=== PATIENT | male | born 2000 | race Caucasian/White ===

== ENCOUNTER 2022-07-12 22:21 | Emergency (ER) | payer SELFPAY ==
[~2022-07-12] VITALS: Ht 193 cm; Wt 88.5 kg
[~2022-07-12 22:21] MED LIST: ATOM40CA3 PO; ZPR20C PO
[2022-07-13] MEDS ORDERED: TETANUS,DIPTH,PERTUSS P/F (BOOSTRIX) 0.5 ML VIAL IM ONE
--- NOTE | 2022-07-13 00:27 | ED General ---
General Chief Complaint: Cough/Cold/Flu Symptoms Stated Complaint: COUGH,CHEST CONGESTION,"LUNGS/HEART BURNING" Nursing Triage Note: PATIENT STATES COUGHING UP MUCUS WHITE AND BROWN. STATES PAINFUL IN CHEST WHEN COUGHING. WEAKNESS. Source of Information: Patient, Family Exam Limitations: No Limitations History of Present Illness Date Seen by Provider: Jul 12, 2022 Time Seen by Provider: 23:15 Initial Comments This 21-year-old young man presents to the emergency room with productive cough and chest pain with his cough. He has a generalized weakness. Throat is sore. He is afebrile. He has taken Tylenol and NyQuil but is still struggling with the symptoms. Cough has been present for 2 to 3 days. He also complains of a laceration on his left ring finger over the proximal PIP joint. This was a self inflicted accidental wound that occurred while he was skinning a deer this morning. Allergies and Home Medications Allergies Coded Allergies: Penicillins (Unverified Allergy, Mild, 07/12/22) amoxicillin (Unverified Allergy, Mild, 07/12/22) Patient Home Medication List Home Medication List Reviewed: Yes Atomoxetine Hcl (Strattera) 40 Mg Capsule, 40 MG PO DAILY, (Reported) Entered as Reported by: YONG NAVARRO on 11/11/101607 Ziprasidone (Geodon 20 Mg Cap) 20 Mg Cap, 20 MG PO EVENING, (Reported) Entered as Reported by: YONG NAVARRO on 11/11/101607 Review of Systems Review of Systems Constitutional: no symptoms reported EENTM: see HPI Respiratory: see HPI Cardiovascular: no symptoms reported Gastrointestinal: no symptoms reported Genitourinary: no symptoms reported Musculoskeletal: see HPI Skin: no symptoms reported Psychiatric/Neurological: No Symptoms Reported Hematologic/Lymphatic: No Symptoms Reported Past [id number] Hx Patient Social History Tobacco Use?: Yes Tobacco type used: Cigarettes Smoking Status: Current Everyday Smoker Immunizations Up To Date Influenza Vaccine Up-to-Date: No; Not Current Past Medical History Surgeries: No Respiratory: No Cardiac: No Neurological: No Genitourinary: No Gastrointestinal: No Musculoskeletal: No Endocrine: No Cancer: No Psychosocial: No Physical Exam Vital Signs Capillary Refill : Height, Weight, BMI Height: '" Weight: lbs. oz. kg; 23.00 BMI Method: General Appearance: No Apparent Distress, WD/WN HEENT: PERRL/EOMI, TMs Normal, Normal ENT Inspection, Pharynx Normal Neck: Normal Inspection Respiratory: Lungs Clear, Normal Breath Sounds, No Accessory Muscle Use Cardiovascular: Regular Rate, Rhythm, No Edema, No Murmur Gastrointestinal: Non Tender, Soft Extremity: No Pedal Edema, Other (Laceration on dorsum on left ring finger over the PIP joint. No bleeding or inflammation. Flexion and extention intact. No aparent tendon injury. ) Neurologic/Psychiatric: Alert, Oriented x3, No Motor/Sensory Deficits, Normal Mood/Affect Skin: Normal Color, Warm/Dry, Other (laceration less than 1cm on the dorsum of the left ring finger. No bleeding or inflammation) Progress/Results/Core Measures Suspected Sepsis SIRS Temperature: Pulse: 66 Respiratory Rate: Blood Pressure 129 /75 Mean: 93 Results/Orders Lab Results Laboratory Tests Test 07/12/22 23:30 Range/Units Influenza Type A (RT-PCR) Detected H Not Detecte Influenza Type B (RT-PCR) Not Detected Not Detecte SARS-CoV-2 RNA (RT-PCR) Not Detected Not Detecte My Orders Orders - IAN OTTO MD Covid 19 Inhouse Test (07/12/22 23:15) Influenza A And B By Pcr (07/12/22 23:15) Dipht,Pertuss(Acell),Tet Adult (Boostrix (07/13/22 00:00) Vaccine Administration Single (07/12/22 ) Medications Given in ED Vital Signs/I&O Capillary Refill : Blood Pressure Mean: 93 Progress Note : Progress Note Patient tested positive for influenza A. He is too far into course of illness for Tamiflu. Laceration could not be reasonably repaired due to location and greater than 12 hours since injury. Wound was washed with chlorhexidine and tetanus booster was administered. See discharge instructions for further discussion. Departure Impression Primary Impression: Influenza A Additional Impression: Laceration of finger Qualified Codes: S61.215A - Laceration without foreign body of left ring finger without damage to nail, initial encounter Disposition: 01 HOME, SELF-CARE Condition: Stable Departure-Patient Inst. Decision time for Depature: 00:25 Referrals: NO,LOCAL PHYSICIAN (PCP/Family) Primary Care Physician Patient Instructions: Flu Add. Discharge Instructions: Drink plenty of clear liquids to stay well-hydrated. You may take ibuprofen up to 600 mg every 6 hours and/or Tylenol (acetaminophen) up to 1000 mg every 6 hours as needed for pain or fever. Avoid contact with others until your significant symptoms and fever have been gone for at least 24 hours without medications. Keep your laceration covered when active or in dirty environments. You may use the splint to keep the finger from bending and splitting the laceration open. Monitor for signs of infection such as increasing redness, increasing swelling, puslike drainage, or fever. Return to care if you notice the symptoms. All discharge instructions reviewed with patient and/or family. Voiced understanding. IAN OTTO MD Jul 13, 2022 00:26
[2022-07-13 00:53] VITALS: BP 129/75
== END 2022-07-13 00:54 | disposition home or self-care (01) ==
LOC: EDUNIT# 22:21 → ER 22:24
DX: S61.215A Laceration without foreign body of left ring finger without damage to nail, initial encounter (principal); J10.1 Influenza due to other identified influenza virus with other respiratory manifestations; F17.210 Nicotine dependence, cigarettes, uncomplicated; Z23 Encounter for immunization; Z28.310 Unvaccinated for COVID-19; Z20.822 Contact with and (suspected) exposure to COVID-19; W26.9XXA Contact with unspecified sharp object(s), initial encounter; Y93.89 Activity, other specified
CPT/HCPCS: 87636; 90471; 90715; 99285